=== PATIENT | female | born 1960 | race Caucasian/White ===

== ENCOUNTER 2017-06-20 18:00 | Emergency (ER) | payer SELFPAY ==
[~2017-06-20] VITALS: Wt 61.2 kg
[~2017-06-20 18:00] MED LIST: ALBUTEROL0.09 MG/A2 INH; ANTIBIOTIC O500 U/GM TP; ASPIR-TRIN325 MG; BACTRIM DS 8001 TA1 PO; CELEBREX200 MG; CEPHALEXIN500 M1 PO; HYDROCODONE BIT1 T11 PO; KEFLEX500 MG PO; LOMOTIL 0.025 M1 TA1 PO; MOBIC15 MG PO; NORFLEX100 MG PO; PHENERGAN25 M1 PO; PREDNISONE1 MG PO; SUBOXONE1 FI1 SL; VOLTAREN50 M1 PO
[2017-06-20 18:37] VITALS: BP 128/82
== END 2017-06-20 19:03 | disposition short-term general hospital (02) ==
LOC: ED 18:00
DX: S09.93XA Unspecified injury of face, initial encounter (principal); M25.512 Pain in left shoulder; R68.84 Jaw pain; M79.651 Pain in right thigh; F17.200 Nicotine dependence, unspecified, uncomplicated; Z79.899 Other long term (current) drug therapy; W11.XXXA Fall on and from ladder, initial encounter; Y93.89 Activity, other specified; Y92.89 Other specified places as the place of occurrence of the external cause; Y99.8 Other external cause status

== ENCOUNTER 2021-10-29 11:44 | Inpatient (IN) | payer OTHER ==
[~2021-10-29] VITALS: Ht 160 cm; Wt 50.6 kg
[2021-10-29 11:55] VITALS: BP 119/46
[2021-10-29] MEDS ORDERED: METHYLPRED-DP4 MG PO (12:22)
[2021-10-29] MEDS ORDERED: LEFLUNOMIDE20 M1 PO (12:24)
[2021-10-29] MEDS ORDERED: PROAIR HFA8.5 GM INH (12:24)
[2021-10-29] MEDS ORDERED: MELOXICAM15 MG PO (12:24)
[2021-10-29] MEDS ORDERED: CYCLOBENZAPRINE10 MG PO (12:25)
[2021-10-29] MEDS ORDERED: BUPROPION75 MG PO (12:26)
[2021-10-29] MEDS ORDERED: CYPROHEPTADINE H4 M1 PO (12:29)
[2021-10-29] MEDS ORDERED: SUBOXONE 8 MG-1 EACH SL (12:29)
[2021-10-29] MEDS ORDERED: SERTRALINE HYD100 MG PO (12:30)
[2021-10-29] MEDS ORDERED: LISINOPRIL30 MG PO (12:30)
[2021-10-29 12:35] LABS: MEAN CELL VOLUME 75.5 fl (81.0-99.0); MEAN CORPUSCULAR HGB 23.6 pg (27.0-31.0); MEAN CORPUSCULAR HGB CONC 31.3 g/dl (33.0-37.0); MEAN PLATELET VOLUME 8.5 fl (9.6-12.3); NUCLEATED RED BLOOD CELL 0.1 10*3/uL (0.0-0.0); NUCLEATED RED BLOOD CELL 0.2 % (0.0-0.0); PLATELET COUNT AUTOMATED 575 10*3/uL (130-400); RED BLOOD COUNT 3.18 10*6/uL (4.10-5.10); RED CELL DISTRI WIDTH 16.3 % (0-14.5); WHITE BLOOD COUNT 24.4 10*3/uL (4.8-10.8)
[2021-10-29 12:53] LABS: ALBUMIN 2.5 gm/dl (3.1-4.5); CREATININE 1.47 mg/dL (0.55-1.02); POTASSIUM 4.2 mmol/L (3.5-5.1); TOTAL PROTEIN 6.8 gm/dL (6.4-8.2)
[2021-10-29 12:54] LABS: TOTAL CELLS COUNTED 100 #CELLS
[2021-10-29 12:55] LABS: MICROCYTOSIS SLIGHT; PLATELET SUFFICIENCY HIGH (NORMAL); POLYCHROMASIA SLIGHT; ROULEAUX SLIGHT; SCHISTOCYTES FEW
[2021-10-29 13:51] LABS: BILIRUBIN Negative (Negative); BLOOD Negative (Negative); CLARITY Clear (Clear); COLOR Yellow (Yellow); GLUCOSE 1+ (Negative); KETONE 1+ (Negative); LEUKO ESTERASE Negative (Negative); NITRITE Negative (Negative); SPECIFIC GRAVITY 1.025 (1.001-1.030)
[2021-10-29 14:03] LABS: BACTERIA 2+; EPITHELIAL CELLS 0-2; MUCOUS 2+
[2021-10-29 15:54] LABS: ABG BASE EXCESS -1.9 mmol/L (-2.0-2.0); ARTERIAL BLOOD GAS PH 7.423 (7.35-7.45); ARTERIAL BLOOD GAS PO2 83.4 (80-90)
[2021-10-29 15:58] VITALS: BP 136/61
[2021-10-29 18:55] VITALS: BP 115/64
[2021-10-29 21:20] VITALS: BP 112/56
[2021-10-30] VITALS (14 sets, daily range): BP systolic 116–147; BP diastolic 50–78
[2021-10-30 05:52] LABS: ALBUMIN 2.1 gm/dl (3.1-4.5); ALKALINE PHOSPHATASE 115 U/L (45-117); BUN 37 mg/dl (7-24); CHLORIDE 107 mmol/L (98-107); CPK 110 U/L (26-192); CREATININE 1.01 mg/dL (0.55-1.02); POTASSIUM 4.9 mmol/L (3.5-5.1); SGOT/AST 26 IU/L (3-35); SGPT/ALT 28 U/L (12-78); SODIUM 135 mmol/L (136-145); TOTAL PROTEIN 6.3 gm/dL (6.4-8.2)
[2021-10-30 06:14] LABS: HEMATOCRIT 22.8 % (37.0-47.0); MEAN CELL VOLUME 76.8 fl (81.0-99.0); MEAN CORPUSCULAR HGB 23.2 pg (27.0-31.0); MEAN CORPUSCULAR HGB CONC 30.3 g/dl (33.0-37.0); MEAN PLATELET VOLUME 8.9 fl (9.6-12.3); NUCLEATED RED BLOOD CELL 0.1 % (0.0-0.0); PLATELET COUNT AUTOMATED 562 10*3/uL (130-400); RED BLOOD COUNT 2.97 10*6/uL (4.10-5.10); RED CELL DISTRI WIDTH 16.7 % (0-14.5); WHITE BLOOD COUNT 33.6 10*3/uL (4.8-10.8)
[2021-10-30 07:55] LABS: MICROCYTOSIS SLIGHT; ROULEAUX SLIGHT; TARGET CELLS FEW; TOTAL CELLS COUNTED 100 #CELLS
[2021-10-30 07:56] LABS: OVALOCYTES FEW; PLATELET SUFFICIENCY NORMAL (NORMAL); SCHISTOCYTES FEW
[2021-10-30 19:08] LABS: HEMATOCRIT 27.5 % (37.0-47.0); MEAN CELL VOLUME 78.3 fl (81.0-99.0); MEAN CORPUSCULAR HGB 23.9 pg (27.0-31.0); MEAN CORPUSCULAR HGB CONC 30.5 g/dl (33.0-37.0); MEAN PLATELET VOLUME 8.6 fl (9.6-12.3); PLATELET COUNT AUTOMATED 509 10*3/uL (130-400); RED BLOOD COUNT 3.51 10*6/uL (4.10-5.10); RED CELL DISTRI WIDTH 17.2 % (0-14.5); WHITE BLOOD COUNT 34.3 10*3/uL (4.8-10.8)
[2021-10-30 19:36] LABS: PLATELET SUFFICIENCY HIGH (NORMAL); TOTAL CELLS COUNTED 100 #CELLS
[2021-10-30 19:37] LABS: ACANTHOCYTES FEW; BURR CELLS FEW; POLYCHROMASIA SLIGHT
[2021-10-30 19:38] LABS: MICROCYTOSIS SLIGHT
[2021-10-31] VITALS: BP 145/67
[2021-10-31 06:26] LABS: HEMATOCRIT 29.1 % (37.0-47.0); MEAN CELL VOLUME 77.4 fl (81.0-99.0); MEAN CORPUSCULAR HGB 24.5 pg (27.0-31.0); MEAN CORPUSCULAR HGB CONC 31.6 g/dl (33.0-37.0); MEAN PLATELET VOLUME 8.8 fl (9.6-12.3); NUCLEATED RED BLOOD CELL 0.1 % (0.0-0.0); PLATELET COUNT AUTOMATED 494 10*3/uL (130-400); RED BLOOD COUNT 3.76 10*6/uL (4.10-5.10); RED CELL DISTRI WIDTH 17.2 % (0-14.5)
[2021-10-31 06:43] LABS: CHLORIDE 107 mmol/L (98-107); POTASSIUM 5.2 mmol/L (3.5-5.1); SODIUM 135 mmol/L (136-145)
[2021-10-31 07:02] LABS: ALKALINE PHOSPHATASE 90 U/L (45-117); BUN 30 mg/dl (7-24); CREATININE 0.69 mg/dL (0.55-1.02); SGOT/AST 23 IU/L (3-35); SGPT/ALT 28 U/L (12-78); TOTAL PROTEIN 7.1 gm/dL (6.4-8.2)
[2021-10-31 07:50] LABS: ALBUMIN 1.8 gm/dl (3.1-4.5); CPK 66 U/L (26-192)
[2021-10-31 07:59] LABS: BURR CELLS FEW; MICROCYTOSIS SLIGHT; PLATELET SUFFICIENCY HIGH (NORMAL); POLYCHROMASIA SLIGHT; SCHISTOCYTES FEW; TOTAL CELLS COUNTED 100 #CELLS
[2021-10-31 08:00] LABS: TARGET CELLS FEW; TOXIC GRANULATION SLIGHT
[2021-10-31 08:20] VITALS: BP 152/76
[2021-10-31 12:10] VITALS: BP 146/76
[2021-10-31 20:00] VITALS: BP 117/62
[2021-11-01] VITALS (8 sets, daily range): BP systolic 93–148; BP diastolic 39–81
[2021-11-01 06:23] LABS: CHLORIDE 102 mmol/L (98-107); POTASSIUM 4.6 mmol/L (3.5-5.1); SODIUM 131 mmol/L (136-145)
[2021-11-01 06:31] LABS: HEMATOCRIT 24.1 % (37.0-47.0); MEAN CELL VOLUME 75.3 fl (81.0-99.0); MEAN CORPUSCULAR HGB 24.1 pg (27.0-31.0); MEAN PLATELET VOLUME 8.8 fl (9.6-12.3); NUCLEATED RED BLOOD CELL 0.1 % (0.0-0.0); PLATELET COUNT AUTOMATED 404 10*3/uL (130-400); RED CELL DISTRI WIDTH 17.6 % (0-14.5)
[2021-11-01 06:40] LABS: ALKALINE PHOSPHATASE 82 U/L (45-117); CREATININE 0.51 mg/dL (0.55-1.02); SGOT/AST 17 IU/L (3-35); SGPT/ALT 23 U/L (12-78); TOTAL PROTEIN 6.1 gm/dL (6.4-8.2)
[2021-11-01 07:07] LABS: ALBUMIN 1.4 gm/dl (3.1-4.5)
[2021-11-01 07:08] LABS: BUN 20 mg/dl (7-24); CPK 35 U/L (26-192)
[2021-11-01 07:38] LABS: BURR CELLS FEW; MICROCYTOSIS SLIGHT; PLATELET SUFFICIENCY HIGH (NORMAL); POLYCHROMASIA SLIGHT; ROULEAUX SLIGHT; TOTAL CELLS COUNTED 100 #CELLS; VACUOLATION OF NEUTROPHILS SLIGHT
[2021-11-01 07:39] LABS: TOXIC GRANULATION SLIGHT
[2021-11-02] VITALS: BP 124/64
[2021-11-02 06:09] LABS: BUN 17 mg/dl (7-24); CHLORIDE 101 mmol/L (98-107); CREATININE 0.48 mg/dL (0.55-1.02); POTASSIUM 4.3 mmol/L (3.5-5.1); SODIUM 132 mmol/L (136-145)
[2021-11-02 06:30] LABS: HEMATOCRIT 23.9 % (37.0-47.0); MEAN CELL VOLUME 76.1 fl (81.0-99.0); MEAN CORPUSCULAR HGB 23.9 pg (27.0-31.0); MEAN CORPUSCULAR HGB CONC 31.4 g/dl (33.0-37.0); MEAN PLATELET VOLUME 8.8 fl (9.6-12.3); PLATELET COUNT AUTOMATED 378 10*3/uL (130-400); RED BLOOD COUNT 3.14 10*6/uL (4.10-5.10); RED CELL DISTRI WIDTH 18.3 % (0-14.5); WHITE BLOOD COUNT 25.7 10*3/uL (4.8-10.8)
[2021-11-02 07:33] LABS: BASOPHILS 1 % (0-1); PLATELET SUFFICIENCY NORMAL (NORMAL); TOTAL CELLS COUNTED 100 #CELLS
[2021-11-02 08:00] VITALS: BP 144/81
[2021-11-02 12:00] VITALS: BP 146/64
[2021-11-02 20:00] VITALS: BP 141/81
[2021-11-03 00:34] VITALS: BP 135/78
[2021-11-03 04:14] LABS: HEMATOCRIT 25.5 % (37.0-47.0); MEAN CELL VOLUME 76.1 fl (81.0-99.0); MEAN CORPUSCULAR HGB 24.2 pg (27.0-31.0); MEAN CORPUSCULAR HGB CONC 31.8 g/dl (33.0-37.0); MEAN PLATELET VOLUME 8.5 fl (9.6-12.3); PLATELET COUNT AUTOMATED 379 10*3/uL (130-400); RED BLOOD COUNT 3.35 10*6/uL (4.10-5.10); RED CELL DISTRI WIDTH 18.3 % (0-14.5); WHITE BLOOD COUNT 29.1 10*3/uL (4.8-10.8)
[2021-11-03 04:27] LABS: BUN 15 mg/dl (7-24); CHLORIDE 101 mmol/L (98-107); CREATININE 0.55 mg/dL (0.55-1.02); POTASSIUM 4.7 mmol/L (3.5-5.1); SODIUM 133 mmol/L (136-145)
[2021-11-03 04:45] LABS: TOTAL CELLS COUNTED 100 #CELLS; TOXIC GRANULATION SLIGHT; VACUOLATION OF NEUTROPHILS SLIGHT
[2021-11-03 04:46] LABS: MICROCYTOSIS SLIGHT; OVALOCYTES FEW; PLATELET SUFFICIENCY NORMAL (NORMAL); POLYCHROMASIA SLIGHT; TARGET CELLS FEW
[2021-11-03 04:53] LABS: ACT PARTIAL THROMBO TIME 40.2 SECONDS (20.0-32.1); INTERNATIONAL NORM RATIO 1.6 (2.0-3.5)
[2021-11-03 08:00] VITALS: BP 145/76
[2021-11-03 12:00] VITALS: BP 147/70
[2021-11-03 16:00] VITALS: BP 116/68
[2021-11-03 20:00] VITALS: BP 131/82
[2021-11-04] VITALS: BP 134/79
[2021-11-04 04:05] LABS: TOTAL PROTEIN, SERUM 5.5 g/dL (6.0-8.5)
[2021-11-04 06:37] LABS: HEMATOCRIT 23.6 % (37.0-47.0); MEAN CELL VOLUME 75.6 fl (81.0-99.0); MEAN CORPUSCULAR HGB 23.7 pg (27.0-31.0); MEAN CORPUSCULAR HGB CONC 31.4 g/dl (33.0-37.0); PLATELET COUNT AUTOMATED 406 10*3/uL (130-400); RED BLOOD COUNT 3.12 10*6/uL (4.10-5.10); RED CELL DISTRI WIDTH 18.6 % (0-14.5); WHITE BLOOD COUNT 28.4 10*3/uL (4.8-10.8)
[2021-11-04 06:52] LABS: BUN 14 mg/dl (7-24); CHLORIDE 99 mmol/L (98-107); CREATININE 0.42 mg/dL (0.55-1.02); POTASSIUM 4.1 mmol/L (3.5-5.1); SODIUM 132 mmol/L (136-145)
[2021-11-04 07:25] LABS: MICROCYTOSIS SLIGHT; OVALOCYTES FEW; PLATELET SUFFICIENCY HIGH (NORMAL); POLYCHROMASIA SLIGHT; SCHISTOCYTES FEW; TARGET CELLS FEW; TOTAL CELLS COUNTED 100 #CELLS; TOXIC GRANULATION SLIGHT
[2021-11-04 08:00] VITALS: BP 122/74
[2021-11-04] MEDS ORDERED: Carafate1 GM PO (13:10)
[2021-11-04] MEDS ORDERED: ZITHROMAX250 MG PO (13:10)
[2021-11-04] MEDS ORDERED: OMNICEF300 MG PO (13:10)
[2021-11-04] MEDS ORDERED: PROTONIX40 MG PO (13:10)
[2021-11-07 12:07] LABS: A/G RATIO 0.6 (0.7-1.7); ALPHA-1-GLOBULIN 0.8 g/dL (0.0-0.4); ALPHA-2-GLOBULIN 1.2 g/dL (0.4-1.0); GAMMA GLOBULIN 0.5 g/dL (0.4-1.8); GLOBULIN, TOTAL 3.5 g/dL (2.2-3.9); M-SPIKE Comment: g/dL (Not Observed)
== END 2021-11-04 14:15 | disposition home or self-care (01) | DRG 871 ==
LOC: ED 11:44 → EDHOLD 14:27 → 4E 14:27 → 5E 11-02 17:21
PROVIDERS: Family Medicine; Internal Medicine; Internal Medicine Hematology & Oncology; Physician Assistant; ADMIT Internal Medicine; ATTEND Internal Medicine
PROC: 0DB68ZX Excision of Stomach, Via Natural or Artificial Opening Endoscopic, Diagnostic (ICD-10-PCS; principal; 2021-11-01)
DX: A41.9 Sepsis, unspecified organism (principal); N17.0 Acute kidney failure with tubular necrosis; E43 Unspecified severe protein-calorie malnutrition; J96.21 Acute and chronic respiratory failure with hypoxia; K25.0 Acute gastric ulcer with hemorrhage; J18.9 Pneumonia, unspecified organism; E87.1 Hypo-osmolality and hyponatremia; E87.2 Acidosis; R65.20 Severe sepsis without septic shock; D64.9 Anemia, unspecified; Z20.822 Contact with and (suspected) exposure to COVID-19; F41.9 Anxiety disorder, unspecified; F32.A Depression, unspecified; I10 Essential (primary) hypertension; M06.9 Rheumatoid arthritis, unspecified; R73.9 Hyperglycemia, unspecified; D75.839 Thrombocytosis, unspecified; D50.9 Iron deficiency anemia, unspecified; Z79.899 Other long term (current) drug therapy; Z79.51 Long term (current) use of inhaled steroids

== ENCOUNTER 2023-12-28 21:10 | Inpatient (IN) | payer OTHER ==
[~2023-12-28] VITALS: Ht 160 cm; Wt 61.8 kg
[~2023-12-28 21:10] MED LIST changes: +BENADRYL ALLERG25 M5 PO; +BUPROPION75 MG PO; +BUSPAR15 MG PO; +COREG6.25 MG PO; +CYCLOBENZAPRINE10 MG PO; +CYPROHEPTADINE H4 M1 PO; +Carafate1 GM PO; +ELIQUIS5 M1 PO; +FLONASE ALLERG9.9 ML NAS; +LASIX40 MG PO; +LEFLUNOMIDE20 M1 PO; +LIPITOR10 MG PO; +LISINOPRIL30 MG PO; +MELOXICAM15 MG PO; +METHYLPRED-DP4 MG PO; +MICAFUNGIN100 MG IV; +MUCUS RELIEF600 MG PO; +NEURONTIN300 MG PO; +OMNICEF300 MG PO; +OXYCODONE HCL E15 MG PO; +OXYCODONE HCL5 M1 PO; +PACERONE200 MG PO; +PERIACTIN; +PIPERACIL-TAZO4.5 G1 IV; +PREDNISONE10 MG PO; +PREDNISONE5 MG PO; +PROAIR DIGIHAL90 MCG INH; +PROTONIX40 MG PO; +PROVENTIL HFA6.7 GM INH; +REGLAN5 MG PO; +SERTRALINE HYD100 MG PO; +SUBOXONE 8 MG-1 EACH SL; +THEOPHYLLINE300 M2 PO; +TYLENOL325 M2 PO; +VENLAFAXINE75 M1 PO; +VITAMIN D31250 MC2 PO; +ZITHROMAX250 MG PO; +ZITHROMAX500 MG PO
[2023-12-28 21:15] VITALS: BP 183/108
[2023-12-28] MEDS ORDERED: methylPREDNISolone sod succ 125 MG VIAL IV ONE (21:15)
[2023-12-28] MEDS ORDERED: Albuterol Sulf/Ipratropium 3 ML VIAL NEB ONE (21:15)
[2023-12-28 21:32] LABS: HEMATOCRIT 34.1 % (37.0-47.0); MEAN CORPUSCULAR HGB CONC 27.3 g/dl (33.0-37.0); MEAN PLATELET VOLUME 8.4 fl (9.6-12.3); NUCLEATED RED BLOOD CELL 0.1 10*3/uL (0.0-0.0); NUCLEATED RED BLOOD CELL 0.5 % (0.0-0.0); PLATELET COUNT AUTOMATED 521 10*3/uL (130-400); RED BLOOD COUNT 4.43 10*6/uL (4.10-5.10); RED CELL DISTRI WIDTH 20.4 % (0-14.5)
[2023-12-28 21:35] LABS: MANUAL DIFF REFLEX YES
[2023-12-28 21:53] LABS: ALKALINE PHOSPHATASE 90 U/L (46-116); BUN 15 mg/dl (9-23); CHLORIDE 103 mmol/L (98-107); POTASSIUM 3.8 mmol/L (3.4-5.1); SGPT/ALT 31 U/L (5-49); TOTAL PROTEIN 7.1 gm/dL (6.0-8.0)
[2023-12-28 21:55] LABS: OVALOCYTES FEW; PLATELET SUFFICIENCY HIGH (NORMAL); SCHISTOCYTES FEW; TOTAL CELLS COUNTED 100 #CELLS
[2023-12-28] MEDS ORDERED: SODIUM CHLORIDE 0.9% 1,000 ML IV ONE (23:00)
[2023-12-28] MEDS ORDERED: Ceftriaxone Sodium 1 GM/10 ML SYR IV ONE (23:00)
[2023-12-28] MEDS ORDERED: AZITHROMYCIN 250 ML IV ONE (23:00)
[2023-12-29] MEDS ORDERED: SODIUM CHLORIDE 0.9% 1,000 ML IV ONE (00:10)
[2023-12-29] MEDS ORDERED: TEMAZEPAM 15 MG CAP PO PRN (01:55)
[2023-12-29] MEDS ORDERED: ACETAMINOPHEN 325 MG TAB PO PRN (01:55)
[2023-12-29] MEDS ORDERED: BISACODYL 5 MG TAB PO PRN (01:55)
[2023-12-29] MEDS ORDERED: Magnesium Hydroxide 30 ML UDC PO PRN (01:55)
[2023-12-29] MEDS ORDERED: ACETAMINOPHEN 650 MG SUPP R PRN (01:55)
[2023-12-29] MEDS ORDERED: Albuterol Sulf/Ipratropium 3 ML VIAL NEB SCH (02:05)
[2023-12-29] MEDS ORDERED: HYDROCHLOROTHIA25 M1 PO (02:05)
[2023-12-29] MEDS ORDERED: EFFEXOR XR75 M1 PO (02:05)
[2023-12-29] MEDS ORDERED: MUCINEX ER600 MG PO (02:08)
[2023-12-29 05:17] VITALS: BP 164/92
[2023-12-29 05:36] LABS: BUN 12 mg/dl (9-23); CHLORIDE 102 mmol/L (98-107); POTASSIUM 4.4 mmol/L (3.4-5.1); THEOPHYLLINE 5.3 ug/ml (10-20)
[2023-12-29] MEDS ORDERED: Pantoprazole Sodium 40 MG TAB PO SCH (06:00)
[2023-12-29] MEDS ORDERED: BUPRENORPHINE HCL/NALOXONE 8 MG-2 MG SL TABLET SL SCH ×2 (06:00→12:00)
[2023-12-29 06:17] LABS: HEMATOCRIT 32.6 % (37.0-47.0); MEAN CELL VOLUME 77.4 fl (81.0-99.0); MEAN CORPUSCULAR HGB 21.1 pg (27.0-31.0); MEAN CORPUSCULAR HGB CONC 27.3 g/dl (33.0-37.0); MEAN PLATELET VOLUME 9.2 fl (9.6-12.3); NUCLEATED RED BLOOD CELL 0.1 10*3/uL (0.0-0.0); NUCLEATED RED BLOOD CELL 0.2 % (0.0-0.0); PLATELET COUNT AUTOMATED 512 10*3/uL (130-400); RED BLOOD COUNT 4.21 10*6/uL (4.10-5.10); RED CELL DISTRI WIDTH 20.4 % (0-14.5); WHITE BLOOD COUNT 29.5 10*3/uL (4.8-10.8)
[2023-12-29 06:29] LABS: MANUAL DIFF REFLEX YES
[2023-12-29 07:00] LABS: TOTAL CELLS COUNTED 100 #CELLS
[2023-12-29 07:01] LABS: OVALOCYTES FEW; PLATELET SUFFICIENCY HIGH (NORMAL); POLYCHROMASIA SLIGHT
[2023-12-29 07:02] LABS: MICROCYTOSIS SLIGHT
[2023-12-29] MEDS ORDERED: busPIRone Hydrochloride 10 MG TAB PO SCH (10:00)
[2023-12-29] MEDS ORDERED: GABAPENTIN 300 MG CAP PO SCH ×2 (10:00→14:00)
[2023-12-29] MEDS ORDERED: CARVEDILOL 12.5 MG TAB PO SCH (10:00)
[2023-12-29] MEDS ORDERED: ATORVASTATIN CALCIUM 10 MG TAB PO SCH (10:00)
[2023-12-29] MEDS ORDERED: Metoclopramide Hydrochloride 5 MG TAB PO SCH (10:00)
[2023-12-29] MEDS ORDERED: THEOPHYLLINE 300 MG PO SCH (10:00)
[2023-12-29] MEDS ORDERED: HYDROCHLOROTHIAZIDE 25 MG TAB PO SCH (10:00)
[2023-12-29] MEDS ORDERED: busPIRone Hydrochloride 15 MG TAB PO SCH (10:00)
[2023-12-29] MEDS ORDERED: methylPREDNISolone sod succ 40 MG VIAL IV SCH (10:00)
[2023-12-29] MEDS ORDERED: Amiodarone Hydrochloride 200 MG TAB PO SCH (10:00)
[2023-12-29] MEDS ORDERED: THEOPHYLLINE 100 MG PO SCH (10:00)
[2023-12-29] MEDS ORDERED: APIXABAN 5 MG TAB PO SCH (10:00)
[2023-12-29] MEDS ORDERED: FUROSEMIDE 40 MG TAB PO SCH (10:00)
[2023-12-29] MEDS ORDERED: buPROPion Hydrochloride 75 MG TAB PO SCH (10:00)
[2023-12-29] MEDS ORDERED: Meloxicam 15 MG TAB PO SCH (10:00)
[2023-12-29] MEDS ORDERED: GUAIFENESIN 600 MG TAB ER PO SCH (10:00)
[2023-12-29] MEDS ORDERED: diphenhydrAMINE hydrochloride 25 MG CAP PO SCH (10:00)
[2023-12-29] MEDS ORDERED: Ceftriaxone Sodium 1 GM in SYRINGE INFUSION 10 ML IV ONE (14:15)
[2023-12-29] MEDS ORDERED: Nicotine 21 MG PATCH T SCH (14:15)
[2023-12-29 17:38] VITALS: BP 156/81
[2023-12-29 18:46] VITALS: BP 156/81
[2023-12-29 20:00] VITALS: BP 138/78
[2023-12-29] MEDS ORDERED: Cyclobenzaprine Hydrochlorid 10 MG TAB PO SCH (22:00)
[2023-12-29] MEDS ORDERED: AZITHROMYCIN 250 ML IV SCH (22:00)
[2023-12-29] MEDS ORDERED: Cyproheptadine Hydrochloride 4 MG TAB PO SCH (22:00)
[2023-12-29] MEDS ORDERED: Ceftriaxone Sodium 1 GM in SYRINGE INFUSION 10 ML IV SCH (22:00)
[2023-12-30] VITALS: BP 153/63
[2023-12-30 04:26] LABS: HEMATOCRIT 32.1 % (37.0-47.0); MEAN CELL VOLUME 75.7 fl (81.0-99.0); MEAN CORPUSCULAR HGB CONC 27.7 g/dl (33.0-37.0); NUCLEATED RED BLOOD CELL 0.1 % (0.0-0.0); PLATELET COUNT AUTOMATED 463 10*3/uL (130-400); RED BLOOD COUNT 4.24 10*6/uL (4.10-5.10); RED CELL DISTRI WIDTH 20.2 % (0-14.5); WHITE BLOOD COUNT 22.3 10*3/uL (4.8-10.8)
[2023-12-30 04:29] LABS: MANUAL DIFF REFLEX YES
[2023-12-30 04:50] LABS: BUN 21 mg/dl (9-23); CHLORIDE 100 mmol/L (98-107); PLATELET SUFFICIENCY HIGH (NORMAL); POTASSIUM 3.8 mmol/L (3.4-5.1); TOTAL CELLS COUNTED 100 #CELLS
[2023-12-30 04:51] LABS: ACANTHOCYTES FEW; BURR CELLS FEW; POLYCHROMASIA SLIGHT
[2023-12-30 04:52] LABS: TOXIC GRANULATION SLIGHT
[2023-12-30 04:53] LABS: MICROCYTOSIS SLIGHT
[2023-12-30 08:00] VITALS: BP 135/87
[2023-12-30] MEDS ORDERED: ERGOCALCIFEROL 50,000 IU CAP (1.25 MG) PO SCH (10:00)
[2023-12-30 12:00] VITALS: BP 124/68
[2023-12-30 16:00] VITALS: BP 141/74
[2023-12-30] MEDS ORDERED: Ceftriaxone Sodium 2 GM in SYRINGE INFUSION 20 ML IV SCH (16:00)
[2023-12-30 20:00] VITALS: BP 138/89
[2023-12-31] VITALS: BP 138/78; BP 138/92
[2023-12-31 05:17] LABS: POTASSIUM 3.9 mmol/L (3.4-5.1)
[2023-12-31 05:59] LABS: HEMATOCRIT 32.8 % (37.0-47.0); MEAN CELL VOLUME 76.1 fl (81.0-99.0); MEAN CORPUSCULAR HGB 20.9 pg (27.0-31.0); MEAN CORPUSCULAR HGB CONC 27.4 g/dl (33.0-37.0); MEAN PLATELET VOLUME 9.2 fl (9.6-12.3); NUCLEATED RED BLOOD CELL 0.1 10*3/uL (0.0-0.0); NUCLEATED RED BLOOD CELL 0.3 % (0.0-0.0); PLATELET COUNT AUTOMATED 504 10*3/uL (130-400); RED BLOOD COUNT 4.31 10*6/uL (4.10-5.10); RED CELL DISTRI WIDTH 19.9 % (0-14.5); WHITE BLOOD COUNT 19.8 10*3/uL (4.8-10.8)
[2023-12-31 06:05] LABS: MANUAL DIFF REFLEX YES
[2023-12-31 07:01] LABS: MICROCYTOSIS SLIGHT; PLATELET SUFFICIENCY HIGH (NORMAL); TOTAL CELLS COUNTED 100 #CELLS
[2023-12-31 07:02] LABS: BURR CELLS FEW; POLYCHROMASIA SLIGHT
[2023-12-31 07:03] LABS: OVALOCYTES FEW
[2023-12-31 07:33] VITALS: BP 151/83
[2023-12-31] MEDS ORDERED: NICODERM CQ1 EAC2 TD (10:45)
[2023-12-31 11:23] VITALS: BP 148/91
== END 2023-12-31 13:28 | disposition home or self-care (01) | DRG 871 ==
LOC: ED 21:10 → 5E 12-29 01:30 → EDHOLD 12-29 01:30 → 5E 12-29 16:48
PROVIDERS: Family Medicine; Internal Medicine; Student in an Organized Health Care Education/Training Program; ADMIT Internal Medicine; ATTEND Internal Medicine
DX: A41.9 Sepsis, unspecified organism (principal); J18.9 Pneumonia, unspecified organism; J96.22 Acute and chronic respiratory failure with hypercapnia; J44.1 Chronic obstructive pulmonary disease with (acute) exacerbation; J44.0 Chronic obstructive pulmonary disease with (acute) lower respiratory infection; E87.20 Acidosis, unspecified; I50.32 Chronic diastolic (congestive) heart failure; R65.20 Severe sepsis without septic shock; J20.9 Acute bronchitis, unspecified; D50.9 Iron deficiency anemia, unspecified; D75.839 Thrombocytosis, unspecified; F17.210 Nicotine dependence, cigarettes, uncomplicated; M06.9 Rheumatoid arthritis, unspecified; F41.1 Generalized anxiety disorder; I27.20 Pulmonary hypertension, unspecified; I05.0 Rheumatic mitral stenosis; I48.0 Paroxysmal atrial fibrillation; I11.0 Hypertensive heart disease with heart failure; Z83.3 Family history of diabetes mellitus; Z71.6 Tobacco abuse counseling; Z82.49 Family history of ischemic heart disease and other diseases of the circulatory system; Z79.1 Long term (current) use of non-steroidal anti-inflammatories (NSAID); Z79.51 Long term (current) use of inhaled steroids; Z79.899 Other long term (current) drug therapy